=== PATIENT | male | born 1975 | race Caucasian/White ===

== ENCOUNTER → 2020-05-05 11:48 | Outpatient (BNVA) | payer MEDICAID, SELFPAY | PROVIDERS: Visit Provider Emergency Medicine | DX: Z20.828 Contact with and (suspected) exposure to other viral communicable diseases (principal) | CPT/HCPCS: 87635 ==

== ENCOUNTER → 2020-05-13 11:46 | Outpatient (BNVA) | payer MEDICAID, SELFPAY | PROVIDERS: Visit Provider Nurse Practitioner Family | DX: Z20.822 Contact with and (suspected) exposure to COVID-19 (principal) | CPT/HCPCS: 87635 ==

== ENCOUNTER → 2021-07-29 08:57 | Outpatient (BNVA) | payer MEDICAID, SELFPAY | PROVIDERS: Visit Provider Counselor Professional | DX: R73.03 Prediabetes (principal); Z13.220 Encounter for screening for lipoid disorders; Z13.6 Encounter for screening for cardiovascular disorders | CPT/HCPCS: 80053; 80061; 83036; 85025 ==

== ENCOUNTER → 2021-08-07 08:42 | Outpatient (BNVA) | payer MEDICAID, SELFPAY | PROVIDERS: Referring Provider Family Medicine; Visit Provider Nurse Practitioner | DX: R51.9 Headache, unspecified (principal); G89.29 Other chronic pain | CPT/HCPCS: 36415; 80053; 84443; 85025; 99204 ==

== ENCOUNTER 2021-08-27 06:00 | Outpatient (RCR) | payer MEDICAID, SELFPAY | END 2021-09-03 23:59 | disposition home or self-care (01) | LOC: MPT 06:00 | PROVIDERS: Referring Provider Family Medicine; Visit Provider Family Medicine | DX: M75.41 Impingement syndrome of right shoulder (principal) | CPT/HCPCS: 97110; 97161 ==

== ENCOUNTER 2021-08-28 12:24 | Outpatient (CLI) | payer MEDICAID, SELFPAY ==
--- NOTE | 2021-08-28 13:45 | MR_ITS ---
WS: [id number] MRI HEAD WITHOUT CONTRAST TECHNIQUE: Sagittal T1, T2 axial, T2 axial FLAIR, axial and coronal T1 images, axial susceptibility w eighted imaging, axial diffusion weighted images, and coronal T2 images were obtained. IV access coul d not be obtained. Contrast not administered. CLINICAL INFORMATION: R51.9 - Headache, unspecified COMPARISON: CT head May 12, 2020 FINDINGS: No evidence of restricted diffusion to suggest acute ischemia. Ventricular system and basal cisterns are patent. Normal carrera-white differentiation. A few tiny foci of T2 hyperintensity in the periventri cular and subcortical white matter mainly in the frontal lobes. No significant parenchymal volume los s. Normal posterior fossa. Normal vascular flow voids at the skull base. No extra-axial fluid collect ions. No evidence of mass or mass effect. Visualized orbits are normal. Small retention cyst RIGHT maxillar y sinus measuring 9 mm. Normal posterior nasopharynx. Normal parapharyngeal fat. Proximal 7th and 8th cranial nerves appear normal. No hemosiderin on the susceptibly weighted images. Normal optic chiasm and pituitary infundibulum. No rmal cavernous sinuses and Meckel's cave. Temporal lobes and hippocampal formations are normal. MR/MR head wo con* [id number] IMPRESSION: 1. No evidence restricted diffusion to suggest acute ischemia. 2. A few tiny foci of T2 hyperintensity in the periventricular frontal subcort ical white matter nonspecific but can be seen with migraine headaches. 3. No significant parenchymal volume loss. 4. No hemosiderin on the susceptibility weighted images. 5. Temporal lobes and hippocampal formations are normal in appearance. 6. 9 mm retention cyst RIGHT maxillary sinus. Mastoid air cells are well aerat ed. 7. No other significant findings.
== END 2021-08-28 12:25 | disposition home or self-care (01) ==
LOC: RAD 12:27
PROVIDERS: Visit Provider Nurse Practitioner
DX: R51.9 Headache, unspecified (principal); J34.1 Cyst and mucocele of nose and nasal sinus
CPT/HCPCS: 70551